=== PATIENT | male | born 1960 | race African-American/Black ===

== ENCOUNTER 2017-08-02 09:27 | Inpatient (IN) ==
[2017-08-02] MEDS ORDERED: NS 1,000 ML IV ONE ×2 (09:53→10:52)
[2017-08-02 10:06] LABS: MANUAL DIFF NEEDED? NO
[2017-08-02 10:13] LABS: ALLEN TEST YES; BE -8.6 mmoll (-3.0-3.0); BLOOD TYPE ARTERIAL; DRAW SITE R RADIAL; METHB 0.8 % (0.0-1.5); MODALITY ROOM AIR; O2(CT) 24.2 mL/dL (15.0-23.0); PCO2(98.6) 31 mmHg (35-45); PO2(98.6) 98 mmHg (60-100); SAMPLE BLOOD; SAO2 97.7 % (95.0-100.0); THB 17.9 g/dL (11.5-17.4); pH(98.6) 7.32 (7.35-7.45)
--- NOTE | 2017-08-02 10:17 | Diag Imaging Result Doc PS360 ---
EXAM: CHEST-PORTABLE HISTORY: AMS TECHNIQUE: Portable upright AP COMPARISON: None. FINDINGS: Poor inspiratory effort. Heart is not enlarged. The vessels are not distended. No pneumonia. No pleural effusions identified. IMPRESSION: Negative chest Electronically signed by Paulo Webster 08/02/2017 10:15 AM
[2017-08-02 10:35] LABS: INR 1.04; PROTIME 10.9 Seconds (9.2-11.7)
[2017-08-02] MEDS ORDERED: HUMULIN R IV ONE (10:35)
[2017-08-02] MEDS ORDERED: NS 500 ML IV ONE (10:52)
[2017-08-02 10:54] LABS: ALBUMIN 4.6 g/dL (3.5-5.0); CALCIUM 11.1 mg/dL (8.8-10.2); POTASSIUM 5.6 mmol/L (3.5-5.1); TOTAL BILIRUBIN 0.58 mg/dL (0.20-1.00); TOTAL PROTEIN 9.2 g/dL (6.3-8.3)
[2017-08-02 11:16] LABS: BASO% 0.4 % (0.0-0.8); EOS# 0.02 X1000 (0.0-0.7); EOS% 0.3 % (0.0-10.0); HEMATOCRIT 55.5 % (42.0-52.0); HEMOGLOBIN 17.6 g/dL (14.0-18.0); IMM GRAN# 0.02 X1000 (0.0-0.04); IMM GRAN% 0.3 % (0.0-0.5); LYMPH# 1.73 X1000 (1.2-3.4); LYMPH% 24.5 % (20.5-51.1); MCH 27.6 PG (27-31); MCHC 31.7 g/dL (33-37); MCV 87.1 FL (81-99); MONO# 0.68 X1000 (0.11-0.59); MONO% 9.6 % (1.7-9.3); NEUT% 64.9 % (42.2-75.2); PLT 263 X1000 (130-400); RBC 6.37 XMIL (4.7-6.1)
[2017-08-02 11:59] LABS: URINE CULTURE NEEDED? NO; URINE MICRO REVIEW NEEDED? NO; URINE SOURCE CLEAN CATCH
[2017-08-02 12:10] LABS: UR EPITHELIAL CELLS <10 /HPF (<10); URINE BACTERIA NEGATIVE /HPF; URINE RBC <10 /HPF (<10); URINE WBC <10 /HPF (<10)
[2017-08-02 12:11] LABS: BILIRUBIN URINE NEGATIVE (NEGATIVE); BLOOD URINE NEGATIVE (NEGATIVE); COLOR YELLOW; GLUCOSE URINE >1000 mg/dL (NEGATIVE); LEUKOCYTES URINE NEGATIVE (NEGATIVE); NITRITE URINE NEGATIVE (NEGATIVE); PROTEIN URINE TRACE mg/dL (NEGATIVE); SP GRAVITY URINE 1.034; TURBIDITY URINE CLEAR (CLEAR); UROBILINOGEN URINE NORMAL (NORMAL)
[2017-08-02] MEDS ORDERED: 1/2 NS 1,000 ML IV ONE (12:32)
[2017-08-02] MEDS ORDERED: HUMULIN R 100 UNIT in NS 100 ML IV SCH (12:45)
[2017-08-02] MEDS ORDERED: TYLENOL PO PRN (12:50)
[2017-08-02] MEDS ORDERED: ZOFRAN IV PRN (12:50)
[2017-08-02] MEDS ORDERED: SODIUM BICARBONATE 8.4% 50 MEQ in D5W 250 ML IV PRN (13:56)
[2017-08-02] MEDS ORDERED: POTASSIUM CHLORIDE 20 MEQ/SWI 20 MEQ/100 ML IVPB IV PRN (13:56)
[2017-08-02] MEDS ORDERED: KLOR-CON PO PRN (13:56)
[2017-08-02] MEDS ORDERED: POTASSIUM CHLORIDE 40 MEQ/SWI 40 MEQ/100 ML IVPB IV PRN (13:56)
[2017-08-02] MEDS ORDERED: HUMULIN R 100 UNIT in NS 99 ML IV SCH (13:56)
[2017-08-02] MEDS ORDERED: SODIUM BICARBONATE 8.4% 100 MEQ in D5W 500 ML IV PRN (13:56)
[2017-08-02] MEDS ORDERED: MAGNESIUM SULFATE 2 GM/S.W.I. 2 GM/50 ML IVPB IV PRN (13:56)
[2017-08-02] MEDS ORDERED: SODIUM PHOSPHATE 30 MMOL in D5W 250 ML IV PRN (13:56)
[2017-08-02] MEDS ORDERED: D50W SYRINGE IV PRN (13:56)
[2017-08-02 14:41] LABS: ACETONE SERUM SMALL (NEGATIVE)
[2017-08-02 14:49] LABS: AGAP 26; AMYLASE 20 U/L (20-200); BUN 39 mg/dL (8-22); CALCIUM 9.1 mg/dL (8.8-10.2); CHLORIDE 107 mmol/L (98-107); COSMO 322; LIPASE 11 U/L (13-60); MAGNESIUM 2.5 mg/dL (1.5-2.7); SODIUM 151 mmol/L (136-145); TCO2 18 mmol/L (25-35)
[2017-08-02] MEDS: D5 1/2 NS 1,000 ML IV SCH ×3 (15:11→23:19)
[2017-08-02 18:11] LABS: AGAP 15; BUN 34 mg/dL (8-22); CALCIUM 8.5 mg/dL (8.8-10.2); CHLORIDE 116 mmol/L (98-107); COSMO 320; MAGNESIUM 2.3 mg/dL (1.5-2.7); POTASSIUM 4.2 mmol/L (3.5-5.1); SODIUM 152 mmol/L (136-145); TCO2 21 mmol/L (25-35)
[2017-08-02] MEDS: KLOR-CON PO PRN ×2 (18:23→23:19)
[2017-08-02 20:06] LABS: UR AMPHETAMINES QUAL NONE DETECTED (NONE DETECT); UR BARBITUATES QUAL NONE DETECTED (NONE DETECT); UR BENZODIAZEPIN QUAL NONE DETECTED (NONE DETECT); UR CANNABINOIDS QUAL NONE DETECTED (NONE DETECT); UR COCAINE QUAL NONE DETECTED (NONE DETECT); UR METHADONE QUAL NONE DETECTED (NONE DETECT); UR OPIATES QUAL NONE DETECTED (NONE DETECT); UR OXYCODONE QUAL NONE DETECTED (NONE DETECT); UR PCP QUAL NONE DETECTED (NONE DETECT)
[2017-08-02] MEDS: PRILOSEC PO SCH (20:23)
[2017-08-02] MEDS: 1/2 NS 1,000 ML IV SCH (20:27)
[2017-08-02 22:53] LABS: AGAP 15; BUN 31 mg/dL (8-22); CALCIUM 8.7 mg/dL (8.8-10.2); CHLORIDE 122 mmol/L (98-107); COSMO 325; MAGNESIUM 2.2 mg/dL (1.5-2.7); SODIUM 158 mmol/L (136-145); TCO2 21 mmol/L (25-35)
[2017-08-03 03:01] LABS: AGAP 13; BUN 23 mg/dL (8-22); CALCIUM 8.6 mg/dL (8.8-10.2); CHLORIDE 123 mmol/L (98-107); COSMO 324; MAGNESIUM 2.2 mg/dL (1.5-2.7); POTASSIUM 4.1 mmol/L (3.5-5.1); SODIUM 159 mmol/L (136-145); TCO2 23 mmol/L (25-35)
[2017-08-03] MEDS: KLOR-CON PO PRN ×2 (03:43→08:04)
[2017-08-03] MEDS: D5 1/2 NS 1,000 ML IV SCH ×2 (03:43→07:01)
[2017-08-03] MEDS: 1/2 NS 1,000 ML IV SCH (03:44)
[2017-08-03 04:23] LABS: ALLEN TEST YES; BE -0.6 mmoll (-3.0-3.0); BLOOD TYPE ARTERIAL; DRAW SITE R RADIAL; METHB 0.7 % (0.0-1.5); MODALITY ROOM AIR; O2(CT) 20.2 mL/dL (15.0-23.0); PCO2(98.6) 43 mmHg (35-45); PO2(98.6) 79 mmHg (60-100); SAMPLE BLOOD; SAO2 96.9 % (95.0-100.0); THB 15.1 g/dL (11.5-17.4); pH(98.6) 7.37 (7.35-7.45)
[2017-08-03 06:34] LABS: MANUAL DIFF NEEDED? NO
[2017-08-03 06:50] LABS: BASO% 0.3 % (0.0-0.8); EOS# 0.11 X1000 (0.0-0.7); EOS% 1.7 % (0.0-10.0); HEMATOCRIT 45.2 % (42.0-52.0); HEMOGLOBIN 14.4 g/dL (14.0-18.0); IMM GRAN# 0.02 X1000 (0.0-0.04); IMM GRAN% 0.3 % (0.0-0.5); LYMPH# 1.81 X1000 (1.2-3.4); LYMPH% 28.1 % (20.5-51.1); MCH 28.3 PG (27-31); MCHC 31.9 g/dL (33-37); MCV 88.8 FL (81-99); MONO# 0.62 X1000 (0.11-0.59); MONO% 9.6 % (1.7-9.3); MPV 11.9 FL (7.4-10.4); PLT 164 X1000 (130-400); RBC 5.09 XMIL (4.7-6.1)
[2017-08-03 06:54] LABS: HEMOGLOBIN A1C 15.1 % (4.8-6.0); INR 1.08; PROTIME 11.4 Seconds (9.2-11.7)
[2017-08-03 07:03] LABS: MAGNESIUM 2.1 mg/dL (1.5-2.7)
[2017-08-03 07:06] LABS: HDL 46 mg/dL (35-55); LDL 151 mg/dL; TRIGLYCERIDES 136 mg/dL (39-160); VLDL 27 mg/dL
[2017-08-03 07:07] LABS: PTT 19.8 Seconds (22.0-36.0)
[2017-08-03 07:13] LABS: AGAP 11; ALBUMIN 3.4 g/dL (3.5-5.0); ALKALINE PHOSPHATASE 85 U/L (32-122); BUN 21 mg/dL (8-22); CALCIUM 8.6 mg/dL (8.8-10.2); CHLORIDE 120 mmol/L (98-107); COSMO 318; FREE T4 1.05 ng/dL (0.93-1.70); GOT 9 U/L (10-34); GPT 9 U/L (10-44); POTASSIUM 3.8 mmol/L (3.5-5.1); SODIUM 156 mmol/L (136-145); TCO2 25 mmol/L (25-35); TOTAL BILIRUBIN 0.53 mg/dL (0.20-1.00); TOTAL PROTEIN 5.9 g/dL (6.3-8.3)
[2017-08-03] MEDS: LOVENOX SUBQ SCH (08:04)
[2017-08-03] MEDS: PRILOSEC PO SCH (08:04)
[2017-08-03] MEDS: D5W 1,000 ML IV SCH ×2 (08:57→17:23)
[2017-08-03] MEDS ORDERED: LANTUS SUBQ SCH (09:00)
[2017-08-03] MEDS ORDERED: INSULIN PEN NEEDLES ONE (09:50)
[2017-08-03] MEDS: HUMULIN R SUBQ SCH ×3 (11:55→20:37)
[2017-08-03 14:54] LABS: AGAP 11; BUN 16 mg/dL (8-22); CALCIUM 8.7 mg/dL (8.8-10.2); CHLORIDE 111 mmol/L (98-107); COSMO 304; SODIUM 147 mmol/L (136-145); TCO2 25 mmol/L (25-35)
[2017-08-03] MEDS ORDERED: D5W 1,000 ML IV SCH (17:31)
--- NOTE | 2017-08-04 05:18 | EKG Report ---
Test Performed on : 08/03/2017 06:13:47 AM Test Reason : hyperkalemia Blood Pressure : / mmHG Vent. Rate : 084 BPM Atrial Rate : 084 BPM P-R Int : 152 ms QRS Dur : 086 ms QT Int : 398 ms P-R-T Axes : 036 -34 006 degrees QTc Int : 470 ms Normal sinus rhythm. Left axis deviation Moderate voltage criteria for LVH, may be normal variant Nonspecific ST and T wave abnormality Prolonged QT Abnormal ECG When compared with ECG of 02-AUG-2017 14:03, (Unconfirmed) No significant change was found Confirmed by Charles CRESPO, Lyle Riggins ([id number]) on 08/04/2017 8:50:33 PM
--- NOTE | 2017-08-04 05:32 | EKG Report ---
Test Performed on : 08/02/2017 2:03:14 PM Test Reason : BASELINE Blood Pressure : / mmHG Vent. Rate : 097 BPM Atrial Rate : 097 BPM P-R Int : 140 ms QRS Dur : 086 ms QT Int : 368 ms P-R-T Axes : 052 -44 018 degrees QTc Int : 467 ms Normal sinus rhythm. Left axis deviation Minimal voltage criteria for LVH, may be normal variant Abnormal ECG No previous ECGs available Confirmed by Charles CRESPO, Lyle Riggins ([id number]) on 08/04/2017 8:50:14 PM
[2017-08-04] MEDS: HUMULIN R SUBQ SCH ×2 (06:14→11:04)
[2017-08-04 06:43] LABS: MANUAL DIFF NEEDED? NO
[2017-08-04 06:53] LABS: BASO% 0.2 % (0.0-0.8); EOS# 0.09 X1000 (0.0-0.7); EOS% 1.9 % (0.0-10.0); HEMATOCRIT 41.6 % (42.0-52.0); HEMOGLOBIN 13.7 g/dL (14.0-18.0); LYMPH# 1.85 X1000 (1.2-3.4); LYMPH% 38.8 % (20.5-51.1); MCH 28.6 PG (27-31); MCHC 32.9 g/dL (33-37); MCV 86.8 FL (81-99); MONO# 0.52 X1000 (0.11-0.59); MONO% 10.9 % (1.7-9.3); MPV 12.3 FL (7.4-10.4); NEUT% 48.2 % (42.2-75.2); PLT 126 X1000 (130-400); RBC 4.79 XMIL (4.7-6.1)
[2017-08-04 07:04] LABS: AGAP 8; BUN 12 mg/dL (8-22); CHLORIDE 109 mmol/L (98-107); COSMO 291; SODIUM 142 mmol/L (136-145); TCO2 25 mmol/L (25-35)
[2017-08-04] MEDS ORDERED: LANTUS SUBQ SCH (07:49)
[2017-08-04 08:09] VITALS: BP 128/90
[2017-08-04] MEDS: LOVENOX SUBQ SCH (08:29)
[2017-08-04] MEDS ORDERED: INSULIN PEN NEEDLES ONE ×2 (12:26)
== END 2017-08-04 13:00 | disposition home or self-care (01) ==
LOC: ED 09:27 → ICU 12:40 → 3N 08-03 16:40
PROVIDERS: ATTEND Internal Medicine